=== PATIENT | female | born 1990 | race Caucasian/White ===

== ENCOUNTER 2019-01-19 05:13 | Inpatient (IN) | payer OTHER ==
[2019-01-19] MEDS ORDERED: Butorphanol Tartrate 1 MG/ML VIAL SLOW IVP PRN (05:38)
[2019-01-19] MEDS ORDERED: HYDROcodone/Acetaminophen 5/325 mg Tablet PO PRN ×3 (05:38→23:02)
[2019-01-19] MEDS ORDERED: Ibuprofen 800 MG TAB PO PRN (05:38)
[2019-01-19] MEDS ORDERED: Promethazine HCl 25 MG/ML VIAL IM PRN (05:38)
[2019-01-19] MEDS ORDERED: Lidocaine 1% (PF) 30 ML VIAL SC PRN (05:38)
[2019-01-19] MEDS ORDERED: Acetaminophen 500 MG TAB PO PRN (05:38)
[2019-01-19] MEDS ORDERED: Misoprostol 200 MCG TAB PR PRN (05:38)
[2019-01-19] MEDS ORDERED: Ondansetron PF 4 MG/2 ML Vial IVP PRN ×2 (05:38→23:02)
[2019-01-19] MEDS ORDERED: Methylergonovine 0.2 MG/ML VIAL IM PRN (05:38)
[2019-01-19] MEDS ORDERED: hydrALAZINE 20 MG/ML VIAL SLOW IVP PRN ×2 (05:38→23:02)
[2019-01-19] MEDS ORDERED: NS / Oxytocin 40 units/1000ml 1,000 ML IV PRN (05:38)
[2019-01-19] MEDS ORDERED: Diphenoxylate HCl/Atropine Tablet PO PRN (05:38)
[2019-01-19] MEDS ORDERED: Carboprost 250 MCG/ML AMP IM PRN (05:38)
[2019-01-19 06:08] VITALS: BMI 33.0
[2019-01-19 09:17] LABS: Mean Corpuscular HGB CONC 34.1 g/dL (32.0-36.0); Mean Corpuscular Hemoglobin 32.8 pg (27.0-31.0); Mean Corpuscular Volume 96.2 fL (78.0-98.0); Mean Platelet Volume 9.6 fL (7.4-10.4); Platelet Count 123 thou/uL (130-400); RBC Distribution Width 12.5 % (11.5-14.5); Red Blood Cell (RBC) Count 3.95 mill/uL (4.20-5.40); White Blood Cell (WBC) Count 9.9 thou/uL (4.8-10.8)
--- NOTE | 2019-01-19 09:48 | PDOC.LDHP ---
Labor and Delivery H&P Chief complaint: scheduled induction HPI: 28yo at 38w5d by LMP with renata TIUP here for IOL. Pt had dilapan placed yesterday in office. Has irreg contractions and cramps. No LOF VB. Current gestational age (weeks): 38 Due date: 01/28/19 Dating criteria: last menstrual period Grav: 1 Para: 0 Current complications: di/di twins Abnormal US findings: No (concordant growth, last sono A)6lb2oz, B)6lb4oz, Ceph/ Ceph) Past Medical History: denies Current medications: pre-bhavani vitamins, other (Baby ASA) Previous surgical history: other (ACL) Allergies/Adverse Reactions: Allergies Allergy/AdvReac Type Severity Reaction Status Date / Time No Known Allergies Allergy Unverified 01/19/19 06:04 Social history: none - Physical Exam Vital signs reviewed and normal: yes General: NAD Heart: RRR Lungs: CTAB Abdomen: gravid Extremeties: no edema FHT: category 1 [place] contractions every: 2-5min - Vaginal Exam cm dilated: 4 Effacement: 100% Station: -1 (arom clear) - OB Labs Blood type: A RH: positive Antibody Screen: negative HIV: negative RPR: negative HEPSAg: negative 1 hour GCT: negative GBS: negative Urine drug screen: negative Rubella: immune - Assessment L&D Assessment: medically indicated induction - Plan Plan: admit to L&D, labor augmentation if indicated, informed consent obtained, anesthesia consult for pain management -: Discussed pitocin if does not progress with AROM alone. Discussed delivery in OR with addition physician. Desires vaginal delivery, Understands risks of twin vaginal delivery including risk of breech extraction, head entrapment, distress, placental abruption, stat CS of second twin with potential lower apgars. Strongly recommend epidural, pt is still deciding on this, pt understands that she will need GETA if no epidural and stat CS occurs and understands need to allow us to place hands in uterus needing to extract breech. All questions answered.
[2019-01-19 09:55] LABS: HBSAg Index 0.35 S/CO (0-0.99); Hep B Surf Ag Non-Reactive S/CO (NonReactive); Syphilis Antibody Nonreactive (Nonreactive); Syphilis Antibody Index 0.04 S/CO (<1.00 Non-Reactive)
[2019-01-19] MEDS ORDERED: Lidocaine 2% MPF 10 ML AMP (For Epidural Use) ONE (11:11)
[2019-01-19] MEDS ORDERED: Fentanyl 4 mcg/Bup 0.1% Cadd 100 ML ONE (11:58)
[2019-01-19] MEDS ORDERED: Lidocaine 1.5%/Epinephrine 1:200,000 5 ML AMPUL IJ ONE (12:14)
[2019-01-19] MEDS: Lactated Ringer's 1,000 ML IV SCH ×2 (12:35→15:11)
--- NOTE | 2019-01-19 12:42 | PDOC.LDPN ---
Labor & Delivery Progress Note - Subjective Subjective: painful contractions - Objective Vital signs reviewed and normal: yes General: NAD, breathing through contractions Uterine fundus: non tender Dilation: 6 Effacement: 100% Station: 1+ FHT: category 1 (x2) [place] contractions every: 2min -: Pt getting epidural, progressing well, entering into active labor, statuses reassuring. GBS neg, Plt mild decr at 123 c/w gestational thrombocytopenia.
[2019-01-19] MEDS ORDERED: Misoprostol 200 MCG TAB ONE (17:26)
[2019-01-19] MEDS ORDERED: Carboprost 250 MCG/ML AMP ONE (17:27)
[2019-01-19] MEDS ORDERED: Methylergonovine 0.2 MG/ML VIAL ONE (17:27)
[2019-01-19] MEDS ORDERED: NS / Oxytocin 40 units/1000ml 1,000 ML ONE (17:27)
[2019-01-19] MEDS ORDERED: NS w/ Oxytocin 10 units 500 ML ONE (17:47)
[2019-01-19] MEDS ORDERED: Fentanyl 100 MCG/2 ML VIAL ONE (18:09)
--- NOTE | 2019-01-19 19:05 | PDOC.OPDEL ---
OB Operative/Delivery Note Delivery Dr/Surgeon: Mireya Obando Assist: Nurys Pre-Delivery Diagnosis: medically indicated induction (renata twins at 38w6d) Procedure/Post Delivery Dx: spontaneous vaginal delivery (x 2) Weeks gestation: 38 Anesthesia: epidural - Findings A Sex: female - 1 min: 8 - 5 min: 9 B Sex: female - 1 min: 8 - 5 min: 9 - Additional Findings/Plan Placenta delivered: spontaneous Repaired Obstetrical Laceration: 1st degree Estimated blood loss: 400cc Post delivery plan: routine recovery
[2019-01-19] MEDS ORDERED: Magnesium Sulfate 20 gm/500 ml 20 GM/500 ML BAG ONE (20:38)
[2019-01-19] MEDS ORDERED: Calcium Gluc 4.6 MEQ/10 ML (100 MG/ML) SLOW IVP PRN (20:39)
[2019-01-19] MEDS ORDERED: Magnesium Sulfate 20 GM/WATER 500 ML BAG IVPB SCH (20:45)
--- NOTE | 2019-01-19 21:31 | PDOC.EVN ---
Event Note - Event Note Event Note: NEHAL Mata Called reporting severe range blood pressures after pushing 5mg of hydralizine IV per the standing order. Reports that patient denies severe features including PATIÑO, RUQ pain, scoatoma. I consulted with Dr. Obando her primary OB who agreed with POC to administer mgSO4 and run PreeE labs stat. Inst RN to check DTRs and clonus and orders were entered
[2019-01-19] MEDS: Magnesium Sulfate 20 gm/500 ml 20 GM/500 ML BAG IVPB SCH (21:55)
[2019-01-19] MEDS ORDERED: Preparation H Ointment 28 GM TUBE PR PRN (23:02)
[2019-01-19] MEDS ORDERED: Benzocaine-Menthol 82.5 ML CAN TOP PRN (23:02)
[2019-01-19] MEDS ORDERED: NS / Oxytocin 40 units/1000ml 1,000 ML IV SCH (23:02)
[2019-01-19] MEDS ORDERED: Milk Of Magnesia 30 ML UDCUP PO PRN (23:02)
[2019-01-19] MEDS ORDERED: Bisacodyl 10 MG SUPP PR PRN (23:02)
[2019-01-19] MEDS ORDERED: Lanolin Ointment 7 GM TUBE TOP PRN (23:02)
[2019-01-19] MEDS ORDERED: Adacel (T-DAP) 0.5 ML SYRINGE IM ONE (23:02)
[2019-01-19] MEDS ORDERED: diphenhydrAMINE 25 MG CAP PO PRN (23:02)
[2019-01-20 01:34] LABS: Creatinine, Urine 29.49 mg/dL (47-110)
[2019-01-20] MEDS: Magnesium Sulfate 20 gm/500 ml 20 GM/500 ML BAG IVPB SCH ×2 (05:18→15:18)
--- NOTE | 2019-01-20 07:33 | PRG ---
DATE OF SERVICE: 01/20/2019 SUBJECTIVE: The patient is day 1, status post a term spontaneous vaginal delivery of twin gestation. She was placed on magnesium for seizure prophylaxis secondary to onset of preeclampsia with severe features. The patient's urine output has been 1 to 200 mL an hour for the last 6 hours. The patient has no complaints, just had some discomfort with the urinary catheter and is expressing interest in discontinuing magnesium as soon as possible. OBJECTIVE: VITAL SIGNS: Blood pressure is 117/62, heart rate of 67, saturating 95% on room air, and temperature 98.9. GENERAL: She appears to be in no acute distress. She is alert and oriented, cooperative and pleasant to interact with. HEENT: Head is normocephalic and atraumatic. Fundus is firm. EXTREMITIES: Nontender, nonedematous. ASSESSMENT AND PLAN: The patient is day 1, status post a term spontaneous vaginal delivery at 1812 hours yesterday evening. The patient is on magnesium for seizure prophylaxis. Currently for preeclampsia. The patient will continue in-house care. If she starts diuresing, she may be eligible for removal of the magnesium early. I did tell her that she could have her Bey out and use a bedpan if she desires. Job ID: [id number]
[2019-01-20] MEDS: Lactated Ringer's 1,000 ML IV SCH (15:00)
[2019-01-20] MEDS: Docusate Calcium (SURFAK) 240 MG CAP PO SCH (15:59)
[2019-01-20] MEDS: Ibuprofen 800 MG TAB PO SCH (16:00)
[2019-01-20] MEDS: Ferrous Sulfate 325 MG TAB PO SCH (16:00)
[2019-01-20] MEDS: Prenatal Vitamin 1 TAB PO SCH (16:00)
[2019-01-21] MEDS: Ferrous Sulfate 325 MG TAB PO SCH ×3 (02:04→17:38)
[2019-01-21] MEDS: Ibuprofen 800 MG TAB PO SCH ×5 (02:04→21:10)
[2019-01-21] MEDS: Docusate Calcium (SURFAK) 240 MG CAP PO SCH ×4 (02:04→21:10)
--- NOTE | 2019-01-21 07:46 | PRG ---
DATE OF SERVICE: 01/21/2019 TIME OF SERVICE: 07:10. SUBJECTIVE: The patient is day 2, status post vaginal delivery with preeclampsia and twin gestation. She has no complaints of headaches or right upper quadrant pain. She states her bleeding is within normal limits. Both babies are feeding well. OBJECTIVE: VITAL SIGNS: Maximum blood pressure 145/70, temperature 98.4, respirations 18, pulse 85. HEENT: Within normal limits. LUNGS: Clear to auscultation bilaterally. ABDOMEN: Soft, nontender. Fundus is firm. Normal lochia. EXTREMITIES: Without clubbing, cyanosis, or edema. IMPRESSION: G1, now day #2, status post normal spontaneous vaginal delivery of twins with severe range blood pressures noted on the p.m. of January 19. PLAN: Continue convalescence with routine care. Observe blood pressures. Anticipate discharge home on January 21 a.m. Job ID: [id number] MTDD
[2019-01-21] MEDS: Prenatal Vitamin 1 TAB PO SCH (10:22)
--- NOTE | 2019-01-21 15:17 | PDOC.EVN ---
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 This information was given to me just now as I am in L&D with another pateint. I recommended 24 hours OBS off mag...which will be tonight at 2100. Bps reviewed in chart and with RN. BPs nonsevere. Babys ready for DC. We will plan for DC tonight at 2100 as BPs ok.
--- NOTE | 2019-01-21 15:20 | PDISCHARGE ---
Discharge - Disposition Disposition: HOME - Patient Instructions Pre-Printed Education: Mastitis, [id number], Baby Blues, Hypertension During , Jgyv-[id number], and Self-Care, Easy- to-Read, Home Care Instructions for Mom, Vaginal Delivery, Care After, Breast Pumping Tips, [id number], Eating Plan for Women, Rear-Facing Child Safety Seat Care Plan Goals: FOCUS: Transition from Acute Care after Discharge GOAL: Successful transition to care in the community YOUR TASKS: (1) review all information outlined in your discharge packet (2) follow any instructions outlined in your discharge packet (3) contact your primary care provider if you have questions or need additional assistance - Referrals and PCP Follow-Up Referrals and PCP Follow-Up: Laney Gomes CNM [Primary Care Provider] - (follow up in 6 weeks) - Activity Instructions Activity:: Activity as Tolerated - Therapy Instructions Additional Therapy Instructions:: Have BP checked in 3 days
--- NOTE | 2019-01-21 15:40 | DIS ---
DATE OF ADMISSION: 01/19/2019 DATE OF DISCHARGE: 01/21/2019 PRINCIPAL DIAGNOSES: 1. Twin gestation. 2. Vaginal delivery. 3. Preeclampsia. 4. Magnesium sulfate prophylaxis administration. HOSPITAL COURSE: In brief, this is a 28-year-old primipara at 38 weeks and 5 days. When she was admitted, admitting physician was Dr. Obando, who arrived to Labor and Delivery with known twin for induction of labor. She underwent controlled vaginal delivery. For full details, please turn to the notes from Dr. Obando. She was placed on magnesium sulfate for high blood pressure/preeclampsia prophylaxis. She was taken off magnesium sulfate on January 20, 2019 at about 2100 hours. On January 21, 2019 at 1515 hours, I received a call from the patient's nurse that the babies had been cleared for release and the patient was stating she would like to go home. I did review the recommendation by ACOG to keep the patient for 24 hours after magnesium to evaluate blood pressure. As the patient stated she would leave AMA if not released, we negotiated a release at 24 hours after her magnesium was turned off, which will be 2100 tonight. I did recommend a blood pressure check in 3 days per ACOG guidelines with her provider. Job ID: [id number]
[2019-01-21 20:40] VITALS: BP 154/76; TEMP 98.6
== END 2019-01-21 21:10 | disposition home or self-care (01) | DRG 806 ==
LOC: L&D 05:13 → L&D-LIB 21:25 → 3SW 01-21 00:14
PROVIDERS: ADMIT Student in an Organized Health Care Education/Training Program; ATTEND Student in an Organized Health Care Education/Training Program
PROC: 10E0XZZ Delivery of Products of Conception, External Approach (ICD-10-PCS; principal; 2019-01-19)
PROC: 3E033VJ Introduction of Other Hormone into Peripheral Vein, Percutaneous Approach (ICD-10-PCS; 2019-01-19)
PROC: 0HQ9XZZ Repair Perineum Skin, External Approach (ICD-10-PCS; 2019-01-19)
DX: O30.043 Twin pregnancy, dichorionic/diamniotic, third trimester (principal); O99.12 Other diseases of the blood and blood-forming organs and certain disorders involving the immune mechanism complicating childbirth; Z37.2 Twins, both liveborn; Z3A.38 38 weeks gestation of pregnancy; O70.0 First degree perineal laceration during delivery; O76 Abnormality in fetal heart rate and rhythm complicating labor and delivery; D69.6 Thrombocytopenia, unspecified; O14.15 Severe pre-eclampsia, complicating the puerperium
CPT/HCPCS: 36415; 51702; 82570; 84156; 85027; 86780; 86850; 86900; 86901; 87340; 88307; 90715; J0360; J2001; J2210; J2405; J2590; J3010; J3475; J3490

== ENCOUNTER 2019-01-25 15:33 | Outpatient (CLI) | payer OTHER ==
[2019-01-25] MEDS ORDERED: Iopamidol 370 76% 100 ML VIAL ONE (16:01)
--- NOTE | 2019-01-25 16:27 | CT ---
CTA OF THE THORAX UTILIZING IV CONTRAST AND 3D REFORMATTED IMAGIN01/25/19 INDICATION: Persistent shallow cough with history of recent twin . COMPARISON: None. FINDINGS: The timing of contrast bolus slightly limits imaging evaluation of the segmental pulmonary arteries. No definite central pulmonary embolus is evident. The lungs are clear. No pleural effusion or pneumot horax is evident. There is a mild pericardial effusion. No enlarged lymph nodes are evident. No defin ite acute osseous abnormality is evident. IMPRESSION: 1. No definite central pulmonary embolus demonstrated. 2. Mild pericardial effusion is nonspecific. POS: OFF
== END 2019-01-25 15:34 | disposition home or self-care (01) ==
LOC: CT 15:33
PROVIDERS: ATTEND Student in an Organized Health Care Education/Training Program
DX: R06.02 Shortness of breath (principal); I31.3 Pericardial effusion (noninflammatory)
CPT/HCPCS: 71275; 82565; 84443; 85027